=== PATIENT | male | born 1970 | race Caucasian/White ===

== ENCOUNTER 2017-12-31 05:18 | Emergency (ER) | payer MEDICAID ==
[~2017-12-31] VITALS: Ht 185.4 cm; Wt 60.7 kg
[~2017-12-31 05:18] MED LIST: ALBU18HF2 IH; ARIP5TAB49; CEPH-571 PO; CYCL-1 PO; DIPH-423 PO; IBUP-1984 PO; LORA1TAB; NORT50CA; PRED20TA PO; marajuana
[2017-12-31 05:19] VITALS: BP 133/84
== END 2017-12-31 05:46 | disposition home or self-care (01) ==
LOC: ER 05:18
DX: G89.29 Other chronic pain (principal); M54.2 Cervicalgia; F12.10 Cannabis abuse, uncomplicated; I25.10 Atherosclerotic heart disease of native coronary artery without angina pectoris; I25.2 Old myocardial infarction; Z79.899 Other long term (current) drug therapy
CPT/HCPCS: 99284

== ENCOUNTER 2018-04-17 23:50 | Emergency (ER) | payer MEDICAID ==
[~2018-04-17] VITALS: Ht 188 cm; Wt 62.4 kg
[2018-04-18 00:04] VITALS: BP 131/92
== END 2018-04-18 01:01 | disposition left against medical advice (07) ==
LOC: ER 23:50
DX: M25.562 Pain in left knee (principal); Z53.21 Procedure and treatment not carried out due to patient leaving prior to being seen by health care provider

== ENCOUNTER 2018-07-30 22:21 | Emergency (ER) | payer MEDICAID ==
[~2018-07-30] VITALS: Ht 182.9 cm; Wt 72.0 kg
[2018-07-30] MEDS ORDERED: CLIN150C2 PO (22:37)
[2018-07-30 22:54] VITALS: BP 124/71
== END 2018-07-30 22:58 | disposition home or self-care (01) ==
LOC: ER 22:22
DX: L02.415 Cutaneous abscess of right lower limb (principal); L03.115 Cellulitis of right lower limb; I25.10 Atherosclerotic heart disease of native coronary artery without angina pectoris; I25.2 Old myocardial infarction; F12.90 Cannabis use, unspecified, uncomplicated; G89.29 Other chronic pain; I10 Essential (primary) hypertension; Z86.14 Personal history of Methicillin resistant Staphylococcus aureus infection; Z79.899 Other long term (current) drug therapy
CPT/HCPCS: 99283

== ENCOUNTER 2018-08-04 04:44 | Emergency (ER) | payer MEDICAID ==
[~2018-08-04] VITALS: Ht 188 cm; Wt 73.7 kg
[~2018-08-04 04:44] MED LIST changes: +CLIN150C2 PO
[2018-08-04] MEDS ORDERED: ketorolac trometh inj. 60 MG/2 ML VIAL IM ONE (05:00)
[2018-08-04] MEDS ORDERED: acetaminophen 325mg tablet PO ONE (05:00)
[2018-08-04] MEDS ORDERED: DOXY100C43 PO (05:27)
[2018-08-04] MEDS ORDERED: doxycycline hyclate 100mg tablet.DR PO ONE (05:30)
[2018-08-04] MEDS ORDERED: ondansetron 4mg rapidly disintigrating tab PO ONE (05:30)
[2018-08-04] MEDS ORDERED: DOXYCYCLINE 100MG CAPSULE PO ONE (05:35)
[2018-08-04 06:10] VITALS: BP 125/74
[2018-08-05] MEDS ORDERED: SULF1TAB49 PO (22:16)
== END 2018-08-04 06:12 | disposition home or self-care (01) ==
LOC: ER 04:45
DX: L02.415 Cutaneous abscess of right lower limb (principal); I25.10 Atherosclerotic heart disease of native coronary artery without angina pectoris; I25.2 Old myocardial infarction; G89.29 Other chronic pain; F12.90 Cannabis use, unspecified, uncomplicated; Z86.14 Personal history of Methicillin resistant Staphylococcus aureus infection; Z79.899 Other long term (current) drug therapy
CPT/HCPCS: 10060; 96372; 99284; J1885

== ENCOUNTER 2018-08-05 21:51 | Emergency (ER) | payer MEDICAID ==
[~2018-08-05] VITALS: Ht 188 cm; Wt 73.8 kg
[~2018-08-05 21:51] MED LIST changes: +DOXY100C43 PO
[2018-08-05 22:04] VITALS: BP 116/75
[2018-08-05] MEDS ORDERED: CefTRIAXone 1000mg IM Kit (w/lidocaine diluent) IM ONE (22:15)
[2018-08-05] MEDS ORDERED: SULF1TAB49 PO (22:16)
== END 2018-08-05 22:45 | disposition home or self-care (01) ==
LOC: ER 21:51
DX: L03.115 Cellulitis of right lower limb (principal); I25.10 Atherosclerotic heart disease of native coronary artery without angina pectoris; I25.2 Old myocardial infarction; G89.29 Other chronic pain; F12.90 Cannabis use, unspecified, uncomplicated; Z79.899 Other long term (current) drug therapy; Z86.14 Personal history of Methicillin resistant Staphylococcus aureus infection; Z87.19 Personal history of other diseases of the digestive system; Z60.2 Problems related to living alone
CPT/HCPCS: 96372; 99283; J0696

== ENCOUNTER 2018-12-26 02:17 | Emergency (ER) | payer MEDICAID ==
[~2018-12-26] VITALS: Ht 185.4 cm; Wt 78.9 kg
[~2018-12-26 02:17] MED LIST changes: -CLIN150C2 PO; -DOXY100C43 PO
[2018-12-26 02:19] VITALS: BP 126/88
[2018-12-26] MEDS ORDERED: TETanus/Pertussis (Acell)/Diphther VAC/PF (Tdap-Adult) 0.5ml syringe IM ONE (02:30)
[2018-12-26] MEDS ORDERED: LIDOcaine 1% w/epiNEPHrine 1:200,000 30ml vial IM ONE (02:30)
== END 2018-12-26 03:00 | disposition home or self-care (01) ==
LOC: ER 02:18
DX: S41.111A Laceration without foreign body of right upper arm, initial encounter (principal); I25.10 Atherosclerotic heart disease of native coronary artery without angina pectoris; I25.2 Old myocardial infarction; G89.29 Other chronic pain; Z86.14 Personal history of Methicillin resistant Staphylococcus aureus infection; F12.90 Cannabis use, unspecified, uncomplicated; Z79.899 Other long term (current) drug therapy; Z60.2 Problems related to living alone; W26.8XXA Contact with other sharp object(s), not elsewhere classified, initial encounter; Y93.89 Activity, other specified; Y92.89 Other specified places as the place of occurrence of the external cause; Y99.8 Other external cause status
CPT/HCPCS: 12002; 90471; 90715; 99283; J3490

== ENCOUNTER 2019-04-02 20:52 | Emergency (ER) | payer MEDICAID ==
[~2019-04-02] VITALS: Ht 185.4 cm; Wt 74.9 kg
[2019-04-02 22:25] VITALS: BP 120/81
--- NOTE | 2019-04-02 22:31 | NUR ---
pt updated on plan of care. pt requesting food. advised can eat when medically cleared.
[2019-04-02 22:51] LABS: BASOPHILS # (AUTO) 0.1 X10'3 (0-0.2); EOSINOPHILS # (AUTO) 0.2 X10'3 (0-0.9); EOSINOPHILS % (AUTO) 3.2 % (0-6); HEMATOCRIT 38.1 % (42.0-52.0); HEMOGLOBIN 12.8 g/dl (14.0-17.9); MEAN CORPUSCULAR HEMOGLOBIN 29.5 PG (27.0-31.0); MEAN CORPUSCULAR HGB CONC 33.6 g/dL (33.0-36.5); MEAN CORPUSCULAR VOLUME 87.8 FL (78-98); MEAN PLATELET VOLUME 8.1 FL (7.4-10.4); MONOCYTES # (AUTO) 0.7 X10'3 (0-0.9); MONOCYTES % (AUTO) 10.5 % (2-12); NEUTROPHILS # (AUTO) 3.9 X10'3 (1.8-7.7); NEUTROPHILS % (AUTO) 56.3 % (42-75); PLATELET COUNT 259 X10'3 (140-440); RED BLOOD COUNT 4.34 X10'6 (4.70-6.10); RED CELL DISTRIBUTION WIDTH 13.6 % (11.5-14.5)
[2019-04-02 22:54] LABS: ALANINE AMINOTRANSFERASE 39 U/L (12-78); ALBUMIN 3.3 G/DL (3.4-5.0); ALBUMIN/GLOBULIN RATIO 0.8 (1.1-1.5); ALKALINE PHOSPHATASE 91 IU/L (46-116); ANION GAP 7 (8-16); ASPARTATE AMINO TRANSFERASE 35 U/L (10-37); BILIRUBIN,TOTAL 0.5 MG/DL (0.1-1.0); BLOOD UREA NITROGEN 22 MG/DL (7-18); CALCIUM 8.5 MG/DL (8.5-10.1); CHLORIDE 104 MMOL/L (99-107); GLUCOSE 92 MG/DL (70-104); POTASSIUM 3.8 MMOL/L (3.5-5.1); SODIUM 136 MMOL/L (135-145); TOTAL CARBON DIOXIDE 25.3 MMOL/L (24-32); TOTAL PROTEIN 7.2 G/DL (6.4-8.2); eGFR 80 ML/MIN
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
== END 2019-04-02 23:34 | disposition left against medical advice (07) ==
LOC: ER 20:52
DX: L03.116 Cellulitis of left lower limb (principal); I25.10 Atherosclerotic heart disease of native coronary artery without angina pectoris; I25.2 Old myocardial infarction; G89.29 Other chronic pain; F41.9 Anxiety disorder, unspecified; F12.90 Cannabis use, unspecified, uncomplicated; F15.90 Other stimulant use, unspecified, uncomplicated; Z86.14 Personal history of Methicillin resistant Staphylococcus aureus infection; Z86.19 Personal history of other infectious and parasitic diseases; Z60.2 Problems related to living alone; Z79.899 Other long term (current) drug therapy
CPT/HCPCS: 36415; 80053; 85025; 99283

== ENCOUNTER 2019-07-20 23:21 | Emergency (ER) | payer MEDICAID ==
[~2019-07-20] VITALS: Ht 188 cm; Wt 60.5 kg
[2019-07-20 23:25] VITALS: BP 124/93
[2019-07-21] MEDS ORDERED: proparacaine 0.5% ophthalmic drops 15ml EACHEYE ONE
--- NOTE | 2019-07-21 01:30 | NUR ---
Eye irrigation continuing.
--- NOTE | 2019-07-21 02:03 | NUR ---
Checked on pt. He is no longer in room. Leonides lens on pillow and Registration called to say pt had walked out. JELENA Pathak and TERRELL Hernandez notified.
== END 2019-07-21 02:03 | disposition left against medical advice (07) ==
LOC: ER 23:22
DX: H57.12 Ocular pain, left eye (principal); I25.10 Atherosclerotic heart disease of native coronary artery without angina pectoris; I25.2 Old myocardial infarction; G89.29 Other chronic pain; F12.90 Cannabis use, unspecified, uncomplicated; F15.90 Other stimulant use, unspecified, uncomplicated; Z79.899 Other long term (current) drug therapy
CPT/HCPCS: 99282

== ENCOUNTER 2020-08-31 16:00 | Emergency (ER) | payer MEDICAID ==
[~2020-08-31] VITALS: Ht 188 cm; Wt 72.7 kg
[~2020-08-31 16:00] MED LIST changes: +LIDOcaine 1% W/epiNEPHrine 1:200,000 10ml vial ONE
[2020-08-31 16:06] VITALS: BP 123/80
[2020-08-31] MEDS ORDERED: SULF1TAB49 PO (17:53)
== END 2020-08-31 17:29 | disposition home or self-care (01) ==
LOC: ER 16:01
DX: L02.416 Cutaneous abscess of left lower limb (principal); I21.9 Acute myocardial infarction, unspecified; Z87.19 Personal history of other diseases of the digestive system; I25.10 Atherosclerotic heart disease of native coronary artery without angina pectoris; F41.9 Anxiety disorder, unspecified; F12.10 Cannabis abuse, uncomplicated; F15.10 Other stimulant abuse, uncomplicated; Z79.899 Other long term (current) drug therapy
CPT/HCPCS: 10060; 99283

== ENCOUNTER 2021-01-07 23:54 | Emergency (ER) | payer MEDICAID ==
[~2021-01-07] VITALS: Ht 188 cm; Wt 72.7 kg
[~2021-01-07 23:54] MED LIST changes: -LIDOcaine 1% W/epiNEPHrine 1:200,000 10ml vial ONE
[2021-01-08 00:14] VITALS: BP 166/87
[2021-01-09] MEDS ORDERED: IBUP-1984 PO (04:27)
== END 2021-01-08 01:45 | disposition left against medical advice (07) ==
LOC: ER 23:54
DX: R05 Cough (principal); R09.89 Other specified symptoms and signs involving the circulatory and respiratory systems; Z53.21 Procedure and treatment not carried out due to patient leaving prior to being seen by health care provider

== ENCOUNTER 2021-01-09 03:56 | Emergency (ER) | payer MEDICAID ==
[~2021-01-09] VITALS: Ht 188 cm; Wt 72.7 kg
[2021-01-09 04:03] VITALS: BP 138/88
[2021-01-09] MEDS ORDERED: SUMAtriptan succ. 6 MG/0.5ml vial SQ ONE (04:25)
[2021-01-09] MEDS ORDERED: ketorolac trometh inj. 60 MG/2 ML VIAL IM ONE (04:25)
[2021-01-09] MEDS ORDERED: proCHLORperazine 10mg tablet PO ONE (04:25)
[2021-01-09] MEDS ORDERED: acetaminophen 325mg tablet PO ONE (04:25)
[2021-01-09] MEDS ORDERED: IBUP-1984 PO (04:27)
== END 2021-01-09 04:49 | disposition home or self-care (01) ==
LOC: ER 03:57
DX: R51.9 Headache, unspecified (principal); I25.10 Atherosclerotic heart disease of native coronary artery without angina pectoris; I25.2 Old myocardial infarction; G89.29 Other chronic pain; F41.9 Anxiety disorder, unspecified; F12.90 Cannabis use, unspecified, uncomplicated; F15.90 Other stimulant use, unspecified, uncomplicated; Z86.19 Personal history of other infectious and parasitic diseases; Z86.14 Personal history of Methicillin resistant Staphylococcus aureus infection; Z60.2 Problems related to living alone; Z98.890 Other specified postprocedural states; Z79.899 Other long term (current) drug therapy
CPT/HCPCS: 96372; 99284; J1885; J3030; Q0164

== ENCOUNTER 2021-11-20 15:56 | Emergency (ER) | payer MEDICAID ==
[~2021-11-20] VITALS: Ht 188 cm; Wt 75.0 kg
[2021-11-20] MEDS ORDERED: benzonatate 100mg capsule PO ONE (16:35)
[2021-11-20] MEDS ORDERED: tranexamic acid 100mg/ml inj. IV ONE (16:35)
[2021-11-20 17:08] LABS: BASOPHILS # (AUTO) 0.1 X10'3 (0-0.2); BASOPHILS % (AUTO) 0.9 % (0-1); EOSINOPHILS # (AUTO) 0.4 X10'3 (0-0.9); EOSINOPHILS % (AUTO) 5.8 % (0-6); HEMATOCRIT 40.2 % (42.0-52.0); HEMOGLOBIN 13.7 g/dl (14.0-17.9); LYMPHOCYTES # (AUTO) 1.7 X10'3 (1.1-4.8); LYMPHOCYTES % (AUTO) 25.2 % (21-51); MEAN CORPUSCULAR HEMOGLOBIN 29.9 PG (27.0-31.0); MEAN CORPUSCULAR HGB CONC 34.1 g/dL (33.0-36.5); MEAN CORPUSCULAR VOLUME 87.8 FL (78-98); MEAN PLATELET VOLUME 8.5 FL (7.4-10.4); MONOCYTES # (AUTO) 0.7 X10'3 (0-0.9); MONOCYTES % (AUTO) 9.6 % (2-12); NEUTROPHILS % (AUTO) 58.5 % (42-75); PLATELET COUNT 219 X10'3 (140-440); RED BLOOD COUNT 4.57 X10'6 (4.70-6.10); RED CELL DISTRIBUTION WIDTH 13.8 % (11.5-14.5); WHITE BLOOD COUNT 6.8 X10'3 (4.5-11.0)
[2021-11-20 17:21] LABS: APTT 29 SECONDS (22-32)
[2021-11-20 17:25] LABS: ALANINE AMINOTRANSFERASE 48 U/L (12-78); ALBUMIN 3.5 G/DL (3.4-5.0); ALBUMIN/GLOBULIN RATIO 0.9 (1.1-1.5); ALKALINE PHOSPHATASE 84 IU/L (46-116); ANION GAP 8 (8-16); ASPARTATE AMINO TRANSFERASE 39 U/L (10-37); BILIRUBIN,TOTAL 0.7 MG/DL (0.1-1.0); BLOOD UREA NITROGEN 14 MG/DL (7-18); BUN/CREATININE RATIO 15.9 (5.4-32.0); CALCIUM 8.4 MG/DL (8.5-10.1); CHLORIDE 106 MMOL/L (99-107); CREATININE 0.88 MG/DL (0.60-1.10); GLUCOSE 96 MG/DL (70-104); POTASSIUM 3.6 MMOL/L (3.5-5.1); SODIUM 142 MMOL/L (135-145); TOTAL CARBON DIOXIDE 28.3 MMOL/L (24-32); TOTAL PROTEIN 7.2 G/DL (6.4-8.2); eGFR > 90 ML/MIN
[2021-11-20 18:06] VITALS: BP 138/90
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
== END 2021-11-20 18:27 | disposition left against medical advice (07) ==
LOC: ER 15:56
DX: R04.2 Hemoptysis (principal); R05.9 Cough, unspecified; R06.02 Shortness of breath; I25.10 Atherosclerotic heart disease of native coronary artery without angina pectoris; I10 Essential (primary) hypertension; I25.2 Old myocardial infarction; F41.9 Anxiety disorder, unspecified; F12.90 Cannabis use, unspecified, uncomplicated; F15.90 Other stimulant use, unspecified, uncomplicated; Z86.19 Personal history of other infectious and parasitic diseases; Z86.14 Personal history of Methicillin resistant Staphylococcus aureus infection; Z98.890 Other specified postprocedural states; Z60.2 Problems related to living alone; Z79.2 Long term (current) use of antibiotics; Z79.899 Other long term (current) drug therapy
CPT/HCPCS: 36415; 71045; 80053; 85025; 85610; 85730; 86885; 86900; 86901; 99284

== ENCOUNTER 2022-01-17 20:03 | Emergency (ER) | payer MEDICAID ==
[~2022-01-17] VITALS: Ht 188 cm; Wt 75.0 kg
[2022-01-17 20:11] VITALS: BP 128/94
== END 2022-01-18 00:12 | disposition left against medical advice (07) ==
LOC: ER 20:04
DX: M25.532 Pain in left wrist (principal); Z53.21 Procedure and treatment not carried out due to patient leaving prior to being seen by health care provider; Y04.8XXA Assault by other bodily force, initial encounter; Y93.89 Activity, other specified; Y92.89 Other specified places as the place of occurrence of the external cause; Y99.8 Other external cause status
CPT/HCPCS: 73110; 73130

== ENCOUNTER 2022-01-18 14:47 | Emergency (ER) | payer MEDICAID ==
[~2022-01-18] VITALS: Ht 188 cm; Wt 75.0 kg
[2022-01-18 14:51] VITALS: BP 147/98
== END 2022-01-18 18:06 | disposition home or self-care (01) ==
LOC: ER 14:48
DX: S60.212A Contusion of left wrist, initial encounter (principal); M25.532 Pain in left wrist; I25.10 Atherosclerotic heart disease of native coronary artery without angina pectoris; I10 Essential (primary) hypertension; I25.2 Old myocardial infarction; F41.9 Anxiety disorder, unspecified; F12.90 Cannabis use, unspecified, uncomplicated; F15.90 Other stimulant use, unspecified, uncomplicated; Z86.19 Personal history of other infectious and parasitic diseases; Z86.14 Personal history of Methicillin resistant Staphylococcus aureus infection; Z98.890 Other specified postprocedural states; Z60.2 Problems related to living alone; Z79.2 Long term (current) use of antibiotics; Z79.899 Other long term (current) drug therapy; X58.XXXA Exposure to other specified factors, initial encounter; Y93.89 Activity, other specified; Y92.89 Other specified places as the place of occurrence of the external cause; Y99.8 Other external cause status
CPT/HCPCS: 29125; 73100; 99283

== ENCOUNTER 2022-04-13 10:44 | Emergency (ER) | payer MEDICAID ==
[~2022-04-13] VITALS: Ht 188 cm; Wt 75.6 kg
[2022-04-13 10:52] VITALS: BP 127/78
== END 2022-04-13 11:59 | disposition left against medical advice (07) ==
LOC: ER 10:44
DX: M54.2 Cervicalgia (principal); Z53.21 Procedure and treatment not carried out due to patient leaving prior to being seen by health care provider

== ENCOUNTER 2022-08-09 21:44 | Emergency (ER) | payer MEDICAID ==
[~2022-08-09] VITALS: Ht 188 cm; Wt 54.5 kg
[2022-08-09 21:47] VITALS: BP 128/83
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
--- NOTE | 2022-08-09 22:53 | NUR ---
HAS ARRIVED. SPOKE WITH .
[2022-08-10] MEDS ORDERED: cephalexin 500mg capsule PO ONE
[2022-08-10] MEDS ORDERED: CEPH500C82 PO (00:06)
== END 2022-08-10 00:26 | disposition home or self-care (01) ==
LOC: ER 21:44
DX: S91.312A Laceration without foreign body, left foot, initial encounter (principal); S70.311A Abrasion, right thigh, initial encounter; S70.312A Abrasion, left thigh, initial encounter; I11.9 Hypertensive heart disease without heart failure; F41.9 Anxiety disorder, unspecified; F12.10 Cannabis abuse, uncomplicated; F15.10 Other stimulant abuse, uncomplicated; Z79.899 Other long term (current) drug therapy; Z79.1 Long term (current) use of non-steroidal anti-inflammatories (NSAID); Z79.2 Long term (current) use of antibiotics; W32.0XXA Accidental handgun discharge, initial encounter; Y93.89 Activity, other specified; Y92.89 Other specified places as the place of occurrence of the external cause; Y99.8 Other external cause status
CPT/HCPCS: 12002; 73630; 99283; A6222; A6223; L3265; A6446; A6449

== ENCOUNTER 2022-09-22 22:36 | Emergency (ER) | payer MEDICAID ==
[~2022-09-22] VITALS: Ht 188 cm; Wt 75.0 kg
[2022-09-23] MEDS ORDERED: CEPH-585 PO (01:42)
[2022-09-23 02:08] VITALS: BP 160/93
== END 2022-09-23 02:10 | disposition home or self-care (01) ==
LOC: ER 22:37
DX: M79.672 Pain in left foot (principal); I25.10 Atherosclerotic heart disease of native coronary artery without angina pectoris; I10 Essential (primary) hypertension; I25.2 Old myocardial infarction; F41.9 Anxiety disorder, unspecified; F12.90 Cannabis use, unspecified, uncomplicated; F15.90 Other stimulant use, unspecified, uncomplicated; G89.29 Other chronic pain; Z86.19 Personal history of other infectious and parasitic diseases; Z86.14 Personal history of Methicillin resistant Staphylococcus aureus infection; Z60.2 Problems related to living alone; Z79.2 Long term (current) use of antibiotics; Z79.899 Other long term (current) drug therapy
CPT/HCPCS: 73630; 99283; A6449

== ENCOUNTER 2022-10-10 18:01 | Emergency (ER) | payer MEDICAID ==
[~2022-10-10] VITALS: Ht 188 cm; Wt 75.0 kg
[~2022-10-10 18:01] MED LIST changes: +CEPH-585 PO
[2022-10-10 18:58] VITALS: BP 131/99
[2022-10-10 19:42] LABS: BASOPHILS # (AUTO) 0.1 X10'3 (0-0.2); BASOPHILS % (AUTO) 0.7 % (0-1); EOSINOPHILS % (AUTO) 0 % (0-6); HEMATOCRIT 44.4 % (42.0-52.0); HEMOGLOBIN 15.2 g/dl (14.0-17.9); LYMPHOCYTES # (AUTO) 1.1 X10'3 (1.1-4.8); LYMPHOCYTES % (AUTO) 11.3 % (21-51); MEAN CORPUSCULAR HEMOGLOBIN 30.4 PG (27.0-31.0); MEAN CORPUSCULAR HGB CONC 34.2 g/dL (33.0-36.5); MEAN CORPUSCULAR VOLUME 88.9 FL (78-98); MONOCYTES # (AUTO) 1.3 X10'3 (0-0.9); MONOCYTES % (AUTO) 12.5 % (2-12); NEUTROPHILS # (AUTO) 7.6 X10'3 (1.8-7.7); NEUTROPHILS % (AUTO) 75.5 % (42-75); PLATELET COUNT 208 X10'3 (140-440); WHITE BLOOD COUNT 10.1 X10'3 (4.5-11.0)
[2022-10-10 19:52] LABS: ALANINE AMINOTRANSFERASE 34 U/L (12-78); ALBUMIN 3.6 G/DL (3.4-5.0); ALBUMIN/GLOBULIN RATIO 0.8 (1.1-1.5); ALKALINE PHOSPHATASE 93 IU/L (46-116); ANION GAP 10 (8-16); ASPARTATE AMINO TRANSFERASE 24 U/L (10-37); BILIRUBIN,TOTAL 0.8 MG/DL (0.1-1.0); BLOOD UREA NITROGEN 12 MG/DL (7-18); CALCIUM 8.7 MG/DL (8.5-10.1); CHLORIDE 96 MMOL/L (99-107); GLUCOSE 114 MG/DL (70-104); POTASSIUM 3.6 MMOL/L (3.5-5.1); SODIUM 128 MMOL/L (135-145); TOTAL CARBON DIOXIDE 22.1 MMOL/L (24-32); TOTAL PROTEIN 7.9 G/DL (6.4-8.2); eGFR 79 ML/MIN
== END 2022-10-11 01:36 | disposition left against medical advice (07) ==
LOC: ER 18:02
DX: L08.9 Local infection of the skin and subcutaneous tissue, unspecified (principal); Z53.21 Procedure and treatment not carried out due to patient leaving prior to being seen by health care provider
CPT/HCPCS: 36415; 80053; 83605; 84145; 85025; 87040; A6449

== ENCOUNTER 2023-04-26 23:41 | Emergency (ER) | payer MEDICAID ==
[~2023-04-26] VITALS: Ht 182.9 cm; Wt 75.0 kg
[2023-04-27 00:54] LABS: CLARITY,URINE CLEAR (Clear); COLOR,URINE YELLOW (Yellow); GLUCOSE, URINE NEGATIVE (Neg); KETONES,URINE NEGATIVE (Neg); LEUKOCYTE ESTERASE ,URINE NEGATIVE (Neg); NITRITES, URINE NEGATIVE (Neg); OCCULT BLOOD,URINE NEGATIVE (Neg); PROTEIN,URINE NEGATIVE (Neg)
[2023-04-27 01:00] LABS: UA COLLECTION TYPE CLN CATCH MIDSTREAM
[2023-04-27 01:01] LABS: BASOPHILS # (AUTO) 0.1 X10'3 (0-0.2); BASOPHILS % (AUTO) 1.1 % (0-1); EOSINOPHILS # (AUTO) 0.4 X10'3 (0-0.9); EOSINOPHILS % (AUTO) 5.2 % (0-6); HEMATOCRIT 39.6 % (42.0-52.0); HEMOGLOBIN 13.6 g/dl (14.0-17.9); LYMPHOCYTES # (AUTO) 2.3 X10'3 (1.1-4.8); LYMPHOCYTES % (AUTO) 30.7 % (21-51); MEAN CORPUSCULAR HEMOGLOBIN 30.1 PG (27.0-31.0); MEAN CORPUSCULAR HGB CONC 34.4 g/dL (33.0-36.5); MEAN CORPUSCULAR VOLUME 87.7 FL (78-98); MONOCYTES # (AUTO) 0.6 X10'3 (0-0.9); MONOCYTES % (AUTO) 7.9 % (2-12); NEUTROPHILS # (AUTO) 4.2 X10'3 (1.8-7.7); NEUTROPHILS % (AUTO) 55.1 % (42-75); PLATELET COUNT 216 X10'3 (140-440); RED BLOOD COUNT 4.52 X10'6 (4.70-6.10); RED CELL DISTRIBUTION WIDTH 13.7 % (11.5-14.5); WHITE BLOOD COUNT 7.6 X10'3 (4.5-11.0)
[2023-04-27 01:23] LABS: ALANINE AMINOTRANSFERASE 40 U/L (12-78); ALBUMIN 3.5 G/DL (3.4-5.0); ALKALINE PHOSPHATASE 97 IU/L (46-116); ANION GAP 9 (8-16); ASPARTATE AMINO TRANSFERASE 28 U/L (10-37); BILIRUBIN,TOTAL 0.4 MG/DL (0.1-1.0); BLOOD UREA NITROGEN 23 MG/DL (7-18); BUN/CREATININE RATIO 20.5 (10.0-20.0); CALCIUM 8.8 MG/DL (8.5-10.1); CHLORIDE 105 MMOL/L (99-107); CREATININE 1.12 MG/DL (0.60-1.10); GLUCOSE 141 MG/DL (70-104); LIPASE 135 U/L (73-393); POTASSIUM 3.5 MMOL/L (3.5-5.1); SODIUM 142 MMOL/L (135-145); TOTAL CARBON DIOXIDE 28.5 MMOL/L (24-32); TOTAL PROTEIN 6.9 G/DL (6.4-8.2); eGFR 69 ML/MIN
[2023-04-27 04:33] VITALS: BP 134/93
== END 2023-04-27 04:34 | disposition home or self-care (01) ==
LOC: ER 23:41
DX: R10.32 Left lower quadrant pain (principal); I10 Essential (primary) hypertension; F12.90 Cannabis use, unspecified, uncomplicated; F15.90 Other stimulant use, unspecified, uncomplicated
CPT/HCPCS: 36415; 74176; 80053; 81003; 83690; 85025; 99284

== ENCOUNTER 2025-06-17 21:52 | Emergency (ER) | payer MEDICAID ==
[~2025-06-17] VITALS: Ht 185.4 cm; Wt 70.5 kg
[~2025-06-17 21:52] MED LIST changes: -CEPH-585 PO
--- NOTE | 2025-06-17 22:22 | Physician Documentation ---
HPI ~ General Chief Complaint: Tooth Problem Stated Complaint: TOOTH PAIN Time Seen by MD: 22:11 Primary Medical Doctor: None History of Present Illness HPI Comment This is a 55-year-old male who presents with two days of left lower rear dental pain, patient reports no fevers or other systemic symptoms. Patient reports no difficulty breathing or swallowing. Medication Reconciliation Allergies: Coded Allergies: No Known Allergies (Unverified , 01/17/22) Scheduled Albuterol Sulfate (Ventolin Hfa), 2 PUFFS IH Q4H Amox Tr/Potassium Clavulanate (Augmentin 875-125 Tablet), 1 TAB PO Q12H Cephalexin (Keflex), 1 CAP PO Q6H Diphenhydramine Hcl* (Benadryl*), 25 MG PO TID Ibuprofen (Ibuprofen), 1 TAB PO Q8H Ibuprofen* (Motrin*), 800 MG PO TID Prednisone* (Prednisone*), 40 MG PO DAILY Scheduled PRN Cyclobenzaprine* (Cyclobenzaprine*), 1 TABLET PO Q8H PRN for muscle spasms Cyclobenzaprine* (Cyclobenzaprine*), 1 TABLET PO Nightly PRN for muscle spasms Miscellaneous Medications Aripiprazole (Abilify), (Reported) Lorazepam (Lorazepam), (Reported) Nortriptyline Hcl (Nortriptyline Hcl), (Reported) [marajuana], (Reported) Past Medical History Past Medical History: Coronary Artery Disease, Hypertension, Myocardial Infarction, Hepatitis C, Chronic Pain, Extremity Fracture, MRSA Abscess, Anxiety Past Surgical History: noncontributory, orthopedic surgeries Alcohol Use: None Drug Use: marijuana, methamphetamine Lives with: Alone Lives In: Home Occupation: disabled Review of Systems ROS As stated above in the HPI, otherwise all systems are reviewed and negative. Physical Exam Vital Signs: Temperature: 97.7, Source: Oral, Heart Rate: 89, Respiratory Rate: 16, BP: 127/90, Pulse Oximetry: 98, Weight: 70.450 Oxygen Flow Rate: 0 Physical Exam VITALS: Reviewed and as above. GENERAL: Alert, nontoxic appearing, no apparent distress. HEENT: Left lower rear 2nd molar decayed to the lateral aspect, gingiva at the base of the molar is swollen and erythematous without fluctuance or drainage. No facial swelling, no submandibular swelling, no elevation of the tongue, no drooling RESPIRATORY: No increased work of breathing, no respiratory distress, speaking in full clear sentences Progress Results/Orders Results/Orders Completed Orders - IRENE LEE REGISTERED DIETETIC TECHNICIAN Ketorolac Trometh 15mg/Ml Vial (Toradol (06/17/25 22:25) Amox Tr/Potassium Clavulanate (Augmentin (06/17/25 22:25) Vital Signs 06/17/25 06/17/25 21:55 22:42 Temp 97.7 98.6 Pulse 89 82 Resp 16 16 B/P (MAP) 127/90 125/86 Pulse Ox 98 99 O2 Flow Rate 0 Medical Decision Making Findings This well appearing 55-year-old male presented with dental pain to the left lower 2nd rear molar. Based on history and physical exam I have low clinical suspicion for peritonsillar abscess, uvulitis, deep tissue space infection of the head/neck, or impending airway compromise. There was no submandibular swelling or elevation of the tongue, the uvula was midline, patient is able to swallow fluids and secretion without difficulty, there is no increased work of breathing or noisy breathing. Based on presentation I am concerned for odontogenic infection and antibiotic treatment with Augmentin is indicated. Pain control with non-narcotic medications is appropriate at this time. Remainder of physical exam was benign and patient reported no other acute symptoms or concerns, patient is appropriate for outpatient follow up and has been directed to follow up as soon as possible with a dentist. Patient provided home care instructions, return to care precautions, and follow up instructions which he verbalized understanding of. Differential Dx:Considerations: Include: Alveolar fracture, Alveolar osteitis, ANUG, Facial Cellulitis, Periapical abscess, Peridontal abscess, Pulpitis, Tooth avulsion, Tooth Fracture, Trigeminal neuralgia, Other Departure Time of Disposition: 22:20 Disposition: 01 HOME / SELF CARE / HOMELESS Impression: Primary Impression: Toothache Condition: Improved Discharge Instructions: Dental Pain Additional Instructions: Take all antibiotics as prescribed. Starting tomorrow you may use the pres cribed ibuprofen as needed for pain, you may add Tylenol [id number] as directed by [id number] packaging as needed for pain not controlled with ibuprofen. Follow up with a dentist as soon as possible. Please follow up with your primary care provider in the next few days. Please return to the emergency department for any new or worsening concerning symptoms including but not limited to worsening pain or swelling to the area, difficulty breathing or swallowing or if you develop a fever over 100.4 that does not lower with ibuprofen or Tylenol. Referrals: NO PRIMARY CARE PROVIDER (PCP) Prescriptions Ibuprofen (Ibuprofen) 800 Mg Tablet 1 TAB PO Q8H for pain for 10 Days, #30 TAB 0 Refills Prov: IRENE LEE 06/17/25 Amox Tr/Potassium Clavulanate (Augmentin 875-125 Tablet) 1 Each Tablet 1 TAB PO Q12H for 7 Days, #14 TAB Prov: IRENE LEE 06/17/25 Education Educated: Patient Educated regarding: diagnosis, treatment, prognosis, need for follow up Signature Scribe Signature: No Scribe Attestation: The note accurately reflects work and decisions made by me.HIMANSHU Garcia 06/18/25 13:31 IRENE LEE Jun 17, 2025 22:22
[2025-06-17] MEDS ORDERED: AMOX-117 PO (22:23)
[2025-06-17] MEDS ORDERED: IBUP-1986 PO (22:23)
[2025-06-17] MEDS: amox tr/potassium clavulanate 875/125mg TAB PO ONE (22:37)
[2025-06-17] MEDS: ketorolac trometh 15mg/ml vial 15 MG/ML ML IM ONE (22:38)
[2025-06-17 22:42] VITALS: BP 125/86; PULSE 82; RESP 16; TEMP 98.6; O2SAT 99
== END 2025-06-17 22:43 | disposition home or self-care (01) ==
LOC: ER 21:52
DX: K08.89 Other specified disorders of teeth and supporting structures (principal); K02.9 Dental caries, unspecified; I25.2 Old myocardial infarction; I25.10 Atherosclerotic heart disease of native coronary artery without angina pectoris; I10 Essential (primary) hypertension; G89.29 Other chronic pain; F41.9 Anxiety disorder, unspecified; F12.90 Cannabis use, unspecified, uncomplicated; F15.90 Other stimulant use, unspecified, uncomplicated; Z86.14 Personal history of Methicillin resistant Staphylococcus aureus infection; Z79.899 Other long term (current) drug therapy; Z60.2 Problems related to living alone; Z86.19 Personal history of other infectious and parasitic diseases
CPT/HCPCS: 96372; 99283; J1885